=== PATIENT | female | born 1950 | race Caucasian/White ===

== ENCOUNTER 2017-08-08 13:09 | Day surgery (SDC) | payer MEDICARE, OTHER ==
[~2017-08-08] VITALS: Ht 172.7 cm; Wt 82.4 kg
[~2017-08-08 13:09] MED LIST: MOTRIN 400400 MG/TAB PO; NORCO 325 MG-51 TAB PO; PREDNISONE10 MG PO; PRILOSEC 20MG20 MG PO; TUMS500 MG PO; ULTRAM 50MG TAB50 MG PO; ZITHROMAX Z PA250 MG PO
[2017-08-08] MEDS ORDERED: PLAQUENIL 200M200 MG PO (13:25)
[2017-08-08] MEDS ORDERED: PRIL40 PO (13:25)
[2017-08-08 13:50] VITALS: BP 145/69; PULSE 67; TEMP 98.4
[2017-08-08 14:28] VITALS: BP 146/84; PULSE 68; TEMP 97.8
[2017-08-08 14:45] VITALS: BP 138/65; PULSE 60
[2017-08-08 15:00] VITALS: BP 115/52; PULSE 64
[2017-08-08 15:53] VITALS: BP 130/85; PULSE 76
== END 2017-08-08 15:20 | disposition home or self-care (01) ==
LOC: SDCO 13:09
DX: K22.2 Esophageal obstruction (principal); K21.0 Gastro-esophageal reflux disease with esophagitis; Z88.5 Allergy status to narcotic agent
CPT/HCPCS: C1726; J2250; J2405; J3010; J3301; J7030

== ENCOUNTER 2017-09-26 08:05 | Day surgery (SDC) | payer MEDICARE, OTHER ==
[~2017-09-26] VITALS: Ht 172.7 cm; Wt 83.5 kg
[~2017-09-26 08:05] MED LIST changes: +PLAQUENIL 200M200 MG PO; +PRIL40 PO
[2017-09-26 08:40] VITALS: BP 132/77; PULSE 73; TEMP 98.3
[2017-09-26 09:35] VITALS: BP 140/65; PULSE 74; TEMP 97.9; TEMP 98
[2017-09-26 09:45] VITALS: BP 136/56; PULSE 66
[2017-09-26 10:00] VITALS: BP 133/67; PULSE 65
[2017-09-26 10:15] VITALS: BP 139/71; PULSE 66
== END 2017-09-26 10:23 | disposition home or self-care (01) ==
LOC: SDCO 08:05
DX: K22.2 Esophageal obstruction (principal); K21.9 Gastro-esophageal reflux disease without esophagitis; R09.1 Pleurisy; Z88.5 Allergy status to narcotic agent
CPT/HCPCS: C1726; J2250; J3010; J3301; J7030

== ENCOUNTER → 2019-10-29 | Outpatient (CLI) | payer MEDICARE, OTHER | LOC: MC.RAD 10:22 | DX: N63.20 Unspecified lump in the left breast, unspecified quadrant (principal) ==

== ENCOUNTER → 2019-11-09 | Outpatient (CLI) | payer MEDICARE, OTHER | LOC: MC.RAD 12:44 | DX: N63.22 Unspecified lump in the left breast, upper inner quadrant (principal) ==

== ENCOUNTER 2019-11-26 06:47 | Day surgery (SDC) | payer MEDICARE, OTHER ==
[2019-11-26] MEDS ORDERED: B-121000 MCG PO (08:44)
[2019-11-26] MEDS ORDERED: FOSAMAX 70MG TA70 MG PO (08:44)
[2019-11-26] MEDS ORDERED: VITAMIN D31000 IU PO (08:45)
[2019-11-26] MEDS ORDERED: NORCO 325 MG-51 TAB PO (12:52)
[2019-11-26 13:25] VITALS: BP 124/88; PULSE 73; TEMP 98.2
--- NOTE | 2019-11-26 13:25 | NUR ---
Patient arrives back to [facility] alert, denies nausea, reports left axilla pain 3/10. Patient monitor applied vitals stable. Patient educated on need to eat some food prior to administering an oral PRN pain medication. Patient has two dressings on left breast/axilla that are clean/dry/intact. Patient's spouse at bedside.
--- NOTE | 2019-11-26 13:35 | NUR ---
Patient given coffee and muffin at this time.
[2019-11-26 13:36] VITALS: TEMP 98.2
[2019-11-26 13:45] VITALS: BP 138/489; PULSE 78
--- NOTE | 2019-11-26 13:50 | NUR ---
Patient reports that pain is 4/10 in left axilla. PRN pain medication administered at this time.
[2019-11-26 14:00] VITALS: BP 129/42; PULSE 89
--- NOTE | 2019-11-26 14:00 | NUR ---
DRESSING CLEAN DRY INTACT. C/O PAIN 03/26.
--- NOTE | 2019-11-26 14:00 | NUR ---
Patient report and care given to TAHIRA Vazquez.
--- NOTE | 2019-11-26 14:30 | NUR ---
AMBULATED TO BATHROOM. VOIDED AND AMBULATED BACK TO BED.
--- NOTE | 2019-11-26 15:16 | NUR ---
DISCHARGED PER WC BY NURSING STAFF TO PRIVATE CAR IN CARE OF
== END 2019-11-26 15:21 | disposition home or self-care (01) ==
LOC: SDCO 06:47
DX: C50.212 Malignant neoplasm of upper-inner quadrant of left female breast (principal); Z17.0 Estrogen receptor positive status [ER+]; D63.0 Anemia in neoplastic disease; M06.9 Rheumatoid arthritis, unspecified; K21.9 Gastro-esophageal reflux disease without esophagitis; Z79.899 Other long term (current) drug therapy; Z88.5 Allergy status to narcotic agent; Z87.891 Personal history of nicotine dependence; Z20.828 Contact with and (suspected) exposure to other viral communicable diseases; Z80.9 Family history of malignant neoplasm, unspecified; Z82.49 Family history of ischemic heart disease and other diseases of the circulatory system; Z82.3 Family history of stroke; Z98.890 Other specified postprocedural states
CPT/HCPCS: A9541; J0690; J1100; J2250; J2405; J2704; J3010; J7120

== ENCOUNTER 2020-08-24 14:16 | Day surgery (SDC) | payer MEDICARE, OTHER ==
[~2020-08-24] VITALS: Ht 172.7 cm; Wt 83.2 kg
[~2020-08-24 14:16] MED LIST changes: +B-121000 MCG PO; +FOSAMAX 70MG TA70 MG PO; +VITAMIN D31000 IU PO
[2020-08-24 15:04] VITALS: BP 136/68; PULSE 85; TEMP 98
[2020-08-24] MEDS ORDERED: B-121000 MCG PO (15:29)
[2020-08-24] MEDS ORDERED: PRILOSEC 20MG20 MG PO (15:30)
[2020-08-24] MEDS ORDERED: ATARAX 25MG25 MG/TAB PO (15:31)
[2020-08-24] MEDS ORDERED: ZYRTEC 10MG10 MG PO (15:32)
[2020-08-24] MEDS ORDERED: CEPHALEXIN500 M1 PO (15:33)
[2020-08-24 18:09] VITALS: BP 133/67; PULSE 73; TEMP 98
[2020-08-24 18:31] VITALS: BP 125/52; PULSE 77
--- NOTE | 2020-08-24 21:47 | NUR ---
Patient given discharge instructions- verbalized understanding, escorted off unit to family car with and all belongings.
== END 2020-08-24 21:30 | disposition home or self-care (01) ==
LOC: SDCO 14:16 → MEDICAL 18:15 → SDCO 21:30
DX: C44.319 Basal cell carcinoma of skin of other parts of face (principal); M06.9 Rheumatoid arthritis, unspecified; Z87.891 Personal history of nicotine dependence; Z79.891 Long term (current) use of opiate analgesic; Z79.899 Other long term (current) drug therapy; Z90.89 Acquired absence of other organs; Z98.890 Other specified postprocedural states; Z82.49 Family history of ischemic heart disease and other diseases of the circulatory system; Z83.3 Family history of diabetes mellitus; Z80.9 Family history of malignant neoplasm, unspecified
CPT/HCPCS: OP; J1100; J1170; J2405; J2704; J3010; J7120

== ENCOUNTER → 2020-10-31 | Outpatient (CLI) | payer MEDICARE, OTHER ==
[~2020-10-31] MED LIST changes: +ATARAX 25MG25 MG/TAB PO; +CEPHALEXIN500 M1 PO; +ZYRTEC 10MG10 MG PO
== END ==
LOC: MC.RAD 10:22
DX: Z98.890 Other specified postprocedural states (principal); Z85.3 Personal history of malignant neoplasm of breast

== ENCOUNTER 2021-08-28 08:56 | Day surgery (SDC) | payer MEDICARE, OTHER ==
[~2021-08-28] VITALS: Ht 172.7 cm; Wt 86.2 kg
[2021-08-28] MEDS ORDERED: ARIMIDEX1 MG PO (09:31)
[2021-08-28 11:55] VITALS: BP 131/67; PULSE 84; TEMP 98.2
[2021-08-28] MEDS ORDERED: NORCO 325 MG-51 TAB PO (11:58)
[2021-08-28 12:25] VITALS: BP 131/82; PULSE 73; TEMP 97.7
--- NOTE | 2021-08-28 12:25 | NUR ---
PT TO BAY 3 PER CART. RECEIVED REPORT. VS OBTAINED. PT TOLERATING WATER WITHOUT DIFFICULTY. CALL LIGHT WITHIN REACH. DENIES ANY NEEDS AT THIS TIME.
[2021-08-28 12:40] VITALS: BP 133/57; PULSE 72
--- NOTE | 2021-08-28 12:40 | NUR ---
PT TOLERATING WATER AND MUFFIN WITHOUT DIFFICULTY. PT DENIES ANY NEEDS AT THIS TIME.
[2021-08-28 12:55] VITALS: BP 133/93; PULSE 72
--- NOTE | 2021-08-28 12:55 | NUR ---
PT CONTINUES TO REST COMFORTABLY.
--- NOTE | 2021-08-28 13:00 | NUR ---
PT STATES PAIN IS MODERATE. HYDROCODONE 5/325 (1) GIVEN TO PT.
--- NOTE | 2021-08-28 13:10 | NUR ---
IV DC'D. PT TOLERATED WELL.
--- NOTE | 2021-08-28 13:15 | NUR ---
PT UP TO RESTROOM AND VOIDED WITHOUT DIFFICULTY.
[2021-08-28 13:22] VITALS: BP 132/78; PULSE 73; TEMP 97.8
--- NOTE | 2021-08-28 13:25 | NUR ---
DISCHARGE EDUCATION COMPLETED WITH PT AND HER . VERBALIZED UNDERSTANDING OF HOME AND FOLLOW UP CARE. ALL QUESTIONS ANSWERED. DISCHARGE PAPERWORK GIVEN TO PT.
--- NOTE | 2021-08-28 13:35 | NUR ---
PT OFF UNIT PER WHEELCHAIR. PT DISCHARGED TO HOME WITH PER PERSONAL VEHICLE.
== END 2021-08-28 13:35 | disposition home or self-care (01) ==
LOC: SDCO 08:56
DX: S81.801A Unspecified open wound, right lower leg, initial encounter (principal); Z87.891 Personal history of nicotine dependence
CPT/HCPCS: J0171; J0690; J1100; J1170; J1885; J2405; J2704; J3010; J7050; J7120

== ENCOUNTER → 2021-11-01 | Outpatient (CLI) | payer MEDICARE, OTHER ==
[~2021-11-01] MED LIST changes: +ARIMIDEX1 MG PO
== END ==
LOC: MC.RAD 11:08
DX: Z12.31 Encounter for screening mammogram for malignant neoplasm of breast (principal); Z85.3 Personal history of malignant neoplasm of breast; Z90.12 Acquired absence of left breast and nipple; Z92.3 Personal history of irradiation

== ENCOUNTER 2022-01-04 13:09 | Day surgery (SDC) | payer MEDICARE, OTHER ==
[~2022-01-04] VITALS: Ht 172.7 cm; Wt 86.6 kg
[2022-01-04] MEDS ORDERED: PLAQUENIL 200M200 MG PO (13:40)
[2022-01-04] MEDS ORDERED: DUPIXENT P300 MG/2 M SQ (13:47)
[2022-01-04 14:35] VITALS: BP 141/61; PULSE 78; TEMP 97.1
[2022-01-04 14:40] VITALS: BP 130/77; PULSE 76; TEMP 97.2
[2022-01-04 14:50] VITALS: BP 145/74; PULSE 74
--- NOTE | 2022-01-04 18:07 | NUR ---
1435- PT RETURNS TO BAY 6 PER CART. ASSIST TO RECLINER. CALL LIGHT WITHIN REACH. MONITOR ON. WATER GIVEN TO PT PER REQUEST. 1450- SECOND SET OF VS MONITORED. IV DC'D WITH CATH INTACT. DISCHARGE INSTRUCTIONS GIVEN WITH VERBAL UNDERSTANDING. 1500- PT DRESSED AND DISMISSED PER W/C TO PRIVATE VEHICLE. PT HAS D/C FOLDER IN HAND.
[2022-01-04 18:12] VITALS: BP 115/56; PULSE 82
== END 2022-01-04 15:00 | disposition home or self-care (01) ==
LOC: SDCO 13:09
DX: K22.2 Esophageal obstruction (principal); K44.9 Diaphragmatic hernia without obstruction or gangrene; K21.00 Gastro-esophageal reflux disease with esophagitis, without bleeding; Z87.891 Personal history of nicotine dependence
CPT/HCPCS: C1726; J2704; J3301; J7120